=== PATIENT | male | born 1985 | race African-American/Black ===

== ENCOUNTER 2017-01-27 17:44 | Emergency (ER) ==
--- NOTE | 2017-01-27 20:27 | PROVIDER DOCUMENTATION ---
HPI-Abdominal Pain/GI Problem - General Chief Complaint: Hemorrhoids Stated Complaint: HEMRRHOIDS Time Seen by Provider: 01/27/17 19:38 Source: patient Allergies/Adverse Reactions: Patient Allergies Allergy/AdvReac Type Severity Reaction Status Date / Time No Known Allergies Allergy Verified 01/27/17 18:16 Home Medications: Home Medication List Medication Instructions Recorded Confirmed Last Taken Type Phenylephrine HCl/Witch Bety 51 gm TP BID #1 gel..gram. 01/20/17 01/27/17 Unknown Rx [Preparation H Cooling Gel] Polyethylene Glycol 3350 [Miralax] 255 gm PO DAILY #1 powder 01/20/17 01/27/17 Unknown Rx Docusate Sodium [Dulcolax Stool 100 mg PO TID PRN PRN #10 capsule 01/27/17 Unknown Rx Softener] Hydrocortisone 2.5% Cream 1 applicatn MA BID #1 tube 01/27/17 Unknown Rx [Anusol-Hc Cream] - History of Present Illness-ABD Nature of Presenting Problems: Patient is a 31yo male that presents with hemorrhoid pain x6hrs. He reports he has had this hemorrhoid for ~7yrs and has had pain previously, but this is the worse it has ever been. Earlier today he tried to push the hemorrhoid back in to relieve his pain, like he has done in the past, but this attempt only made the pain worse. Currently his pain is 10/10, constant and burning. Sitting the "wrong way" and having a BM makes pain worse. Patient tried preparation H, sitz bath, and witch bety to try to help his pain today, but only helped minimally. Patient reports intermittent blood on tissue after BM, but denies light headedness/dizziness, palpitations, fever, or abd pain. Abdominal Pain Onset Location: reports: other (see hpi) Severity in ED: reports: mild Onset/Duration: reports: other (see hpi) Timing: reports: still present Modifying Factors: improves with: defecating Last BM: this morning Dark Stools Present?: reports: none noticed Rectal Bleeding: reports: none Rectal Pain: reports: known hemorrhoids Emesis Description: reports: none Bruising or Bleeding Gums?: No Similar Symptoms Previously?: Yes Recently seen or treated by another doctor?: No Review of Systems - Adult - REVIEW OF SYSTEMS - ADULT Constitutional: reports: no symptoms reported. denies: chills, fatique Eyes: reports: no symptoms reported. denies: discharge, dry eyes Ears, Nose, Mouth & Throat: reports: no symptoms reported. denies: ear discharge, ear pain Cardiovascular: reports: no symptoms reported. denies: chest pain, edema Respiratory: reports: no symptoms reported. denies: chronic cough, cough Gastrointestinal: reports: see HPI. denies: abdominal pain, hematemesis, rectal bleeding Genitourinary: reports: no symptoms reported. denies: dysuria, discharge Musculoskeletal: reports: no symptoms reported. denies: bone pain, back pain Integumentary: reports: no symptoms reported. denies: hives, hair loss Neurological: reports: no symptoms reported. denies: ataxia, dizziness/vertigo Psychiatric: reports: no symptoms reported. denies: anxiety, anti-depressant use Endocrine: reports: no symptoms reported Hematologic/Lymphatic: reports: no symptoms reported Allergic/Immunologic: reports: no symptoms reported All Other Systems: Reviewed and Negative Past History - Adult - PAST MEDICAL HISTORY-ADULT Review of Records: reports: Old Records Reviewed, Nursing Assessment Review, Medications Reviewed, Social history reviewed & non-contributory. 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) - PRIOR SURGERIES/PROCEDURES Surgical/Procedure History: reports: other (eye surgery) - IMMUNIZATION STATUS Childhood Immunizations: See Nurse Assessment Flu Vaccine: See Nurse Assessment - FAMILY HISTORY Family History: reviewed, not pertinent Physical Exam-General - PHYSICAL EXAM-ADULT Initial Vital Signs Reviewed: Yes - CONSTITUTIONAL General Appearance: appears well, alert, no apparent distress - EYES Eyes: PERRL/EOMI, pink conjunctivae - HEAD, EARS, NOSE, MOUTH & THROAT HENMT: normocephalic/atraumatic, moist mucous membranes, normal ENT inspection - NECK Neck: non-tender, full range of motion, supple - RESPIRATORY Respiratory: chest non-tender, lungs clear - CARDIOVASCULAR Cardiovascular: normal peripheral pulses, regular rate, rhythm - GASTROINTESTINAL (ABDOMEN) Abdominal Exam: normal bowel sounds, non tender, soft - GENITOURINARY Rectal Exam: hemorrhoids (non-thrombosed) - MUSCULOSKELETAL Back Exam: normal inspection Extremity: normal range of motion, non-tender, normal gait, normal inspection - SKIN Integumentary: normal color, normal turgor, warm/dry - NEUROLOGIC Neurologic: grossly normal, no motor/sensory deficits - PSYCHIATRIC Psych/Mental Status: normal mood/affect, normal thought content, normal thought process, oriented x 3 Progress - PLAN OF CARE/RESULTS Progress/Plan/Lab Results: Vital Signs Temp Pulse Resp BP Pulse Ox 01/27/17 18:11 98.4 F 61 18 144/82 98 No Known Allergies Allergy (Verified 01/27/17 18:16) Phenylephrine HCl/Witch Bety [Preparation H Cooling Gel] 51 gm TP BID #1 gel..gram. 01/20/17 Polyethylene Glycol 3350 [Miralax] 255 gm PO DAILY #1 powder 01/20/17 Will have pt f/u c surgery. He is in agreement. Departure - Departure Time of Disposition Order: 21:00 DIAGNOSIS: Hemorrhoid Qualifiers: Hemorrhoid type: unspecified Qualified Code(s): K64.9 - Unspecified hemorrhoids Disposition: HOME 01 Certified Medical Emergency: Urgent Condition: Good Additional Instructions: Take medication as prescribed. Continue your Sitz baths. Follow up with a surgeon. Eat a high fiber diet. ED Follow Up Instructions: You have been treated by a care provider in the Emergency Department. These instructions are being provided to you so you can have an understanding of how to care for yourself upon discharge. Upon discharge from the Emergency Department, you are responsible for making arrangements for follow-up care by a physician of your choice. Take all prescribed medications as directed. Return to the Emergency Department immediately for any new or worsening symptoms. You may call the Physician Referral phone number at [phone] to obtain a list of Physicians who are taking new patients. Prescriptions: Hydrocortisone 2.5% Cream [Anusol-Hc Cream] 1 applicatn MA BID #1 tube Docusate Sodium [Dulcolax Stool Softener] 100 mg PO TID PRN PRN #10 capsule PRN Reason: Constipation Referrals: None,PCP [Primary Care Provider] - Farhad Cruz MD [STAFF PHYSICIAN] - Attestation - Physician/ SAMIR Attestation Patient care was provided by Advanced Practice Provider:: Yes Advanced Practice Provider:: Jacob Tipton Advanced Practice Provider documentation review:: The Mid-level provider documentation, treatment plan and medical decision making was reviewed by the physician who agrees with all treatment and medical decision making by the MLP.
[2017-01-27 21:10] VITALS: BP 140/84
== END 2017-01-27 21:11 | disposition home or self-care (01) ==
LOC: P.ED 17:44
DX: K64.9 Unspecified hemorrhoids (principal)